=== PATIENT | female | born 1975 | race Caucasian/White ===

== ENCOUNTER → 2021-01-17 15:51 | Outpatient (CLI) | payer OTHER, SELFPAY ==
--- NOTE | ~2021-01-17 | MM_ITS ---
EXAMINATION: MM screening marline BI w isabel HISTORY: Screening TECHNIQUE: Craniocaudal and mediolateral oblique 3-D tomosynthesis images were obtained and synthetic 2-D images were generated. CAD analysis was submitted and interpreted. COMPARISON: No prior mammogram is available for comparison at this institution. BREAST PARENCHYMAL COMPOSITION: Breast composed of scattered areas of fibroglandular density. FINDINGS: There is no evidence of suspicious mass, calcification, or architectural distortion to sugg est malignancy in either breast. There has been no suspicious interval change. IMPRESSION: 1. No mammographic evidence of malignancy. 2. Recommend routine screening mammography in one year. BI-RADS Category 1: Negative Reviewed, dictated and finalized at location A.
== END ==
PROVIDERS: Visit Provider Obstetrics & Gynecology Gynecology
DX: Z12.31 Encounter for screening mammogram for malignant neoplasm of breast (principal)
CPT/HCPCS: 77063; 77067

== ENCOUNTER → 2022-05-22 16:26 | Outpatient (CLI) | payer OTHER, SELFPAY ==
--- NOTE | ~2022-05-22 | MM_ITS ---
EXAMINATION: MM screening marline BI w isabel HISTORY: Screening TECHNIQUE: Craniocaudal and mediolateral oblique 3-D tomosynthesis images were obtained and synthetic 2-D images were generated. CAD analysis was submitted and interpreted. COMPARISON: Comparison to multiple prior studies sequentially, with oldest reviewed study dated 10/30. BREAST PARENCHYMAL COMPOSITION: There are scattered areas of fibroglandular density. FINDINGS: The left breast is stable without evidence for malignancy. There are developing asymmetries in the upper outer quadrant of the right breast. IMPRESSION: 1. Developing right breast asymmetries, upper outer quadrant middle third. 2. Additional mammographic views and possible breast ultrasound are recommended. BI-RADS Category 0: Incomplete: Needs additional imaging evaluation. Reviewed, dictated and finalized at location B. RITY AGENT IMPRESSION: 1. Developing right breast asymmetries, upper outer quadrant middle third. 2. Additional mammographic views and possible breast ultrasound are recommended . BI-RADS Category 0: Incomplete: Needs additional imaging evaluation.
== END ==
PROVIDERS: Visit Provider Obstetrics & Gynecology Gynecology
DX: Z12.31 Encounter for screening mammogram for malignant neoplasm of breast (principal); R92.8 Other abnormal and inconclusive findings on diagnostic imaging of breast
CPT/HCPCS: 77063; 77067

== ENCOUNTER → 2022-06-19 14:15 | Outpatient (CLI) | payer OTHER, SELFPAY ==
--- NOTE | ~2022-06-19 | MMUS_ITS ---
EXAMINATION: MM diagnostic marline RT w isabel, US breast RT limited HISTORY: Developing asymmetry reported in upper outer quadrant of right breast on 05/22/2022 screenin g mammogram TECHNIQUE: Additional 3-D tomosynthesis images of the right breast were performed and synthetic 2-D i mages were generated. CAD analysis was submitted and interpreted. High resolution upper outer quadran t right breast ultrasound was performed. COMPARISON: 05/22/2022, 01/17/2021, 05/12/2019 bilateral screening mammogram examinations FINDINGS: MAMMOGRAPHIC FINDINGS: No suspicious mass or architectural distortion, malignant calcification, skin thickening or retractio n or significant new or developing density of the right breast is detected since 05/12/2019. ULTRASOUND: 11:00 8 cm from nipple: Parallel circumscribed hypoechoic 6.6 x 9.5 x 8 mm lesion is noted in the dylan y posterior aspect of the breast. No internal vascularity is noted. No through transmission is identi fied. I would recommend ultrasound-guided aspiration attempt; if this is not cystic and doesn't resol ve with cyst aspiration, then ultrasound-guided biopsy should be performed at that time. IMPRESSION: 1. Indeterminate hypoechoic up to 9.5 mm lesion in the very posterior right breast at 11:00 8 cm from the nipple 2. Ultrasound-guided needle aspiration attempt is recommended; if unsuccessful, this should then be b iopsied with ultrasound guidance at the same setting. BI-RADS category 4, suspicious findings. Reviewed, dictated and finalized at location A. ODS EXAMINER IMPRESSION: 1. Indeterminate hypoechoic up to 9.5 mm lesion in the very posterior right kane ast at 11:00 8 cm from the nipple 2. Ultrasound-guided needle aspiration attempt is recommended; if unsuccessful, this should then be biopsied with ultrasound guidance at the same setting. BI-RADS category 4, suspicious findings.
== END ==
PROVIDERS: PCP Nurse Practitioner Family; Visit Provider Obstetrics & Gynecology Gynecology
DX: R92.8 Other abnormal and inconclusive findings on diagnostic imaging of breast (principal)
CPT/HCPCS: 76642; 77061; 77065; G0279

== ENCOUNTER 2022-07-05 12:43 | Outpatient (CLI) | payer OTHER, SELFPAY ==
--- NOTE | ~2022-07-05 | MMUS_ITS ---
EXAMINATION: US GUIDED NEEDLE BIOPSY DATE: 07/05/2022 14:10 [employer] INDICATION: Hypoechoic 6.6 x 9.5 x 8 mm sonographic lesion at 11:00 8 cm from nipple TECHNIQUE AND FINDINGS: The risks and potential benefits of the procedure were discussed with the patient, and written inform ed consent was obtained. Timeout procedure was performed. After sterile preparation of the right miah st, 1% lidocaine was utilized for local anesthesia. An initial attempt was made with ultrasound guidance to use and 18-gauge spinal needle. Aspirate the lesion in the deep left breast at 11:00 8 cm from the nipple, without success. A 14G spring-loaded biopsy gun needle was subsequently advanced to the edge of the region of interest from a superomedial approach utilizing sonographic guidance. A total of 2 tissue core samples were obtained through the lesion. The lesion appeared to largely collapsed after the initial biopsy pass. An Inrad tissue marker clip was then placed at the biopsy site. Hemostasis was achieved. A sterile ba ndage was applied. The patient tolerated procedure well and there was no evidence of immediate complication. The patien t was given verbal instructions prior to departing from the department. A two view mammogram was perf ormed to document tissue marker clip placement. The tissue samples were submitted to surgical patholo gy for histologic analysis. IMPRESSION: 1. Successful ultrasound guided biopsy of right 11:00 breast mass with biopsy marker placement. Plea se refer to pathology report for histologic analysis. Reviewed, dictated and finalized at [facility]. Reviewed, dictated and finalized at location A. [employer] IMPRESSION: 1. Successful ultrasound guided biopsy of right 11:00 breast mass with biopsy marker placement. Please refer to pathology report for histologic analysis.
== END 2022-07-05 12:44 | disposition home or self-care (01) ==
PROVIDERS: PCP Nurse Practitioner Family; Visit Provider Surgery
DX: N63.10 Unspecified lump in the right breast, unspecified quadrant (principal); R92.8 Other abnormal and inconclusive findings on diagnostic imaging of breast
CPT/HCPCS: 19083; 88305; A4648

== ENCOUNTER 2023-10-11 15:12 | Outpatient (CLI) | payer OTHER, SELFPAY ==
--- NOTE | ~2023-10-11 | MM_ITS ---
EXAMINATION: MM screening marline BI w isabel HISTORY: Screening mammogram TECHNIQUE: Craniocaudal and mediolateral oblique 3-D tomosynthesis images were obtained and synthetic 2-D images were generated. CAD analysis was submitted and interpreted. COMPARISON: 07/05/2022 right ultrasound-guided breast biopsy 11, breast mass, reported fibrocystic kristopher nges with focal cyst formation in 06/19/2022 diagnostic right mammogram and Limited right breast ultrasound 05/22/2022, 01/17/2021 bilateral screening mammogram examinations BREAST PARENCHYMAL COMPOSITION: There are scattered areas of fibroglandular density. FINDINGS: There is no evidence of suspicious mass, calcification, or architectural distortion to sugg est malignancy in either breast. There has been no suspicious interval change. IMPRESSION: 1. No mammographic evidence of malignancy. 2. Recommend routine screening mammography in one year. BI-RADS Category 1: Negative Reviewed, dictated and finalized at location A.
== END 2023-10-11 15:13 ==
LOC: MICIMG 15:12
PROVIDERS: PCP Obstetrics & Gynecology Gynecology; Visit Provider Obstetrics & Gynecology Gynecology
DX: Z12.31 Encounter for screening mammogram for malignant neoplasm of breast (principal)
CPT/HCPCS: 77063; 77067

== ENCOUNTER 2024-10-14 13:59 | Outpatient (CLI) | payer OTHER, SELFPAY ==
--- NOTE | ~2024-10-14 | MM_ITS ---
EXAMINATION: MM screening marline BI w isabel HISTORY: Screening TECHNIQUE: Craniocaudal and mediolateral oblique 3-D tomosynthesis images were obtained and synthetic 2-D images were generated. CAD analysis was submitted and interpreted. COMPARISON: Comparison to multiple prior studies sequentially, with oldest reviewed study dated 07/2018. BREAST PARENCHYMAL COMPOSITION: Not dense: There are scattered areas of fibroglandular density. FINDINGS: There is no evidence of suspicious mass, calcification, or architectural distortion to sugg est malignancy in either breast. There has been no suspicious interval change. IMPRESSION: 1. No mammographic evidence of malignancy. 2. Recommend routine screening mammography in one year. BI-RADS Category 1: Negative Reviewed, dictated and finalized at location A.
== END 2024-10-14 14:00 | disposition home or self-care (01) ==
LOC: MICIMG 14:00
PROVIDERS: PCP Obstetrics & Gynecology Gynecology; Visit Provider Obstetrics & Gynecology Gynecology
DX: Z12.31 Encounter for screening mammogram for malignant neoplasm of breast (principal)
CPT/HCPCS: 77063; 77067